=== PATIENT | female | born 1965 | race Caucasian/White ===

== ENCOUNTER → 2017-08-28 16:52 | Outpatient (CLI) | payer OTHER, SELFPAY ==
[2017-08-28 18:10] LABS: Absolute Lymphocyte Count 1.34 X10^3/ul (0.83-4.51); Absolute Neutrophil Count 4.4 X10^3/uL (2.0-7.7); Basophil# 0.03 X10^3/uL; Basophil% 0.5 % (0-1); Eosinophil# 0.19 X10^3/uL; Eosinophils% 2.9 % (0-5); Hematocrit 37.5 % (37-47); Hemoglobin 12.8 g/dl (12.0-15.0); Lymphocyte # 1.34 X10^3/ul (4.0); Lymphocyte % 20.6 % (19-41); Mean Corp Hgb Conc 34.1 g/gl (32-36); Mean Corpuscular Hgb 33.2 pg (27.0-32.0); Mean Corpuscular Volume 97.4 fL (81-99); Mean Platelet Vol. 9.8 fl (6.2-12.0); Monocyte# 0.53 X10^3/uL; Monocyte% 8.1 % (0-10); Neutrophil # 4.41 X10^3/uL (2.7-7.7); Neutrophil % 67.7 % (47-70); Platelet Count 229 K/mm3 (150-450); RBC Distribution Width CV 13.1 % (11.6-14.6); RBC Distribution Width SD 45.6 fl (35.1-43.9); Red Blood Count 3.85 M/mm3 (4.2-5.4); White Blood Count 6.5 K/mm3 (4.4-11.0)
[2017-08-28 18:21] LABS: POSITIVE COUNT NO; POSITIVE DIFFERENTIAL NO; POSITIVE MORPHOLOGY NO
[2017-08-28 18:24] LABS: Anion Gap 5 (5-15); BUN 12 mg/dL (7-18); BUN/Creat Ratio 25.8 RATIO (10-20); Calcium,Total 8.9 mg/dL (8.5-10.1); Chloride 104 mmol/L (98-107); Creatinine, Serum 0.47 mg/dL (0.55-1.02); EST Glomerular Filtration Rate 150 mL/min (>60); Est Glom Filt Rate - Afr Amer 181 mL/min (>60); Glucose 85 mg/dL (74-106); Potassium 3.4 mmol/L (3.5-5.1); Sodium Level 140 mmol/L (136-145)
== END ==
PROVIDERS: Family Provider Family Medicine; PCP Family Medicine; Visit Provider Nurse Practitioner Adult Health
DX: R53.83 Other fatigue (principal)
CPT/HCPCS: 36415; 80048; 84443; 85025

== ENCOUNTER → 2017-08-31 14:35 | Outpatient (CLI) | payer OTHER, SELFPAY ==
--- NOTE | 2017-08-31 14:15 | EMB_PTH ---
PATIENT: MYA SALINAS LOC: [facility] U#:[id number] AGE/SX: 59/F ROOM: RE08/31/[address]: Dr. Dima Cosby MD : 1965 BED: DIS: SPEC #: [id number] RECD: 08/31/17 15:09 STATUS: MARIE AMANDA #: [id number] SHAWNEE: 08/31/17 14:[address]: Dima Cosby DEPT: SURGICAL PATHOLOGY RECD BY: Ebony Cabrera Tissues: Endometrium, NOS Procedures: Surgery Specimen Level IV HEADER OPERATION: Endometrial biopsy PRE-OP DIAGNOSIS: Postmenopausal bleeding TISSUE SUBMITTED: Endometrium MICROSCOPIC DIAGNOSIS Endometrial biopsy: Strips and superficial fragments of benign endometrial tissue. Fragments of benign endocervical epithelium and mucous. SJ:daniella 09/04/17 MICROSCOPIC DESCRIPTION Slides are reviewed. GROSS DESCRIPTION Received in fixative is one container labeled with the patient's name and designated endometrial biopsy. The specimen consists of multiple fragments of hemorrhagic soft tissue that in aggregate measure 2.5 x 1 x 0.1 cm. The specimen is totally submitted in one cassette. / SJ:daniella 09/03/17 TC:5 CPT: 17714
[2017-09-05 13:11] LABS: HPV Reflexed? NOT INDICATED
== END ==
PROVIDERS: Visit Provider Obstetrics & Gynecology
DX: Z12.4 Encounter for screening for malignant neoplasm of cervix (principal)
CPT/HCPCS: 88175; 88305; G0145

== ENCOUNTER 2017-10-08 06:54 | Day surgery (SDC) | payer OTHER, SELFPAY ==
[2017-10-03 15:02] LABS: Partial Thromboplast Time 26.9 Seconds (24.1-36.2); Prothrombin Time (Protime)PT. 13.5 SECONDS (11.7-14.9)
[2017-10-03 15:35] LABS: ALB/GLOB Ratio 1.1 RATIO (0.9-2.4); AST(SGOT) 29 U/L (15-37); Alanine Aminotransfer ALT/SGPT 38 U/L (13-56); Alkaline Phosphatase 76 U/L (45-117); Anion Gap 9 (5-15); BUN 19 mg/dL (7-18); BUN/Creat Ratio 31.8 RATIO (10-20); Calcium,Total 9.2 mg/dL (8.5-10.1); Chloride 104 mmol/L (98-107); EST Glomerular Filtration Rate 112 mL/min (>60); Est Glom Filt Rate - Afr Amer 136 mL/min (>60); Globulin 3.7 g/dL (2.2-4.2); Glucose 82 mg/dL (74-106); Potassium 4.2 mmol/L (3.5-5.1); Protein, Total 7.7 g/dL (6.4-8.2); Sodium Level 140 mmol/L (136-145)
--- NOTE | 2017-10-07 11:41 | PCM.HP.BLA ---
History and Physical Date of Admission: 10/08/17 Surgical History and Physical Mariela Iniguez, a 51 year old female 3 0 0 0 3, presents for RAVH/BSO on October 08, 2017 at 9:00. 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 Also Left Lower Back Pain. Mariela characterizes it to be down to the left thigh and upwards to the back. Mariela characterizes the quality sharp. Mariela characterizes the quality throbbing. Mariela characterizes the quality stabbing. Mariela characterizes the quality painful. Severity is severe. It is relieved by epson salt baths. Additional comments are: u/s today showed small simple ovarian cyst, moderately enlarged uterus without fibroids, and 1.2 cm EM stripe; prior HER Option cryoablation. EMBx ok. MEDICATIONS HISTORY: Patient is also takin. lisinopril 10 mg tablet, daily 2. Zofran 4 mg tablet, daily 3. ProAir RespiClick 90 mcg/actuation aerosol powdr breath activated, 1 puff q q 4 hours prn ALLERGIES: Sulfonamides, Ortha evra, Headaches, Codeine and Nausea Infections - PYLO Illnesses - no serious past illnesses Accidents - no injuries of consequence Hospitalizations - Childbirth Review of Systems: GENERAL - Denies fever, or chills SKIN - Denies skin changes EYES - Denies visual changes EARS - Denies difficulty hearing NOSE - Denies nasal congestion or bleeding MOUTH - Denies sore throat or difficulty swallowing NECK - Denies pain or swelling RESPIRATORY - Denies shortness of breath or wheezing CARDIOVASCULAR - Denies palpitations or chest pain GASTROINTESTINAL - Denies nausea, vomiting, diarrhea, constipation GENITOURINARY - Denies dysuria, frequency of urination, incontinence of urine MUSCULOSKELETAL - Denies joint or muscle pain NEUROLOGICAL - Denies localized numbness or weakness PSYCHIATRIC - Denies depression or anxiety ENDOCRINE - Denies heat or cold intolerance, weight loss or gain HEMATO-IMMUNOLOGIC - Denies excesive bleeding with cuts SOCIAL HISTORY: Alcohol Use - drinks occasionally Smoking - denies use Diet - no special diet Exercise - Pilates Seat Belt Use - always Employer - unemployed Illicit Drug Use - None Sexual Activity - Spouse-Sig Other Name - ISABEL Children Name(s) - Kenyon Hood Kelton Control - Vasectomy FAMILY HISTORY: Family history of Breast cancer, DM II and Heart Disease. MENSTRUAL HISTORY: LMP Known?- DefiniteAmount/Duration - 5-7 days, Regularity - Irregular and heavy, Frequency - variable days, LMP - 11/17/08 PAST PREGNANCIES: Total Pregnancies - 3; Full Term Pregnancies - 3; Premature - 0; Abortions, Induced - 0; Abortions, Spontaneous - 0; Ectopics - 0; Multiple Births - 0; Living Children - 3 SURGICAL HISTORY: 1. 10/21/2008 [facility] Endometrial ablation ; Dima Cosby M.D. - menorrhagia, dysmenorrhea, irreg periods PHYSICAL EXAM BP- 130/100 Sitting, Right arm, regular cuff Weight- 182.54703 lbs Height- 65.50 inch BMI:29.92 CONSTITUTIONAL - NAD, well nourished, and well developed HEENT - Normocephalic, PERRLA, EOMI NECK - no nuchal rigidity LUNGS - clear to auscultation CARDIAC - Regular rate and rhythm without rubs, murmurs, or gallops ABDOMEN - Tender to palpation over lower abdomen B and suprapubic region . Upper abdomen NT . No rebound. Uterus appears slightly enlarged EXTREMITIES - No edema or calf tenderness NEUROLOGICAL - Cranial nerves II-XII grossly intact PSYCHIATRIC - A and O to time, place, person, mood and affect External Genitial Vagina - non-tender without lesions Urethra/Urethral Meatus - non-tender Bladder - non-tender Vagina - vaginal bellamy are pink and moist without loss of rugae and no evidence of atropy Cervix - without cervical motion tenderness and has normal size and features without evident lesions Uterus - slightly large. Tender to palpation . Adnexa - clear without massess or tenderness ASSESSMENT/PLAN: 1. Postmenopausal Bleeding, Pelvic pain s/p endometrial ablation EMBx OK. Discuissed proceeding with either H/S with D and C or RAVH/BS. Reviewed pelvic u/s results with patient. Pt desires proceding with RAVH/BSO. Discussed RBAs and all questions answered.
[2017-10-08] VITALS (12 sets, daily range): BP systolic 110–149; BP diastolic 50–84; PULSE 61–87; RESP 16–18; TEMP 36.3–37.4; O2SAT 95–100; BMI 29.2
--- NOTE | 2017-10-08 09:20 | HYST_PTH ---
PATIENT: MYA SALINAS LOC: [facility] U#:[id number] AGE/SX: 51/F ROOM: RE10/08/[address]: Dr. Dima Cosby MD : 1965 BED: DIS: 10/09/2017 SPEC #: [id number] RECD: 10/08/17 14:43 STATUS: MARIE RELaury #: [id number] SHAWNEE: 10/08/17 09:[address]: Dima Cosby DEPT: SURGICAL PATHOLOGY RECD BY: Dayron Dyson ENTERED: 10/08/17 14:43 SP TYPE: HYSTERECT OTHR DR: Dr. Dima Alegria MD Tissues: Uterus, NOS Procedures: Surgery Specimen Level V HEADER OPERATION: Laparoscopic robotic vaginal hysterectomy bilateral salpingo PRE-OP DIAGNOSIS: Postmenopausal bleeding, pelvic pain TISSUE SUBMITTED: Uterus, cervix, bilateral fallopian tubes and bilateral ovaries MICROSCOPIC DIAGNOSIS Uterus, hysterectomy: Cervix ? no pathologic change. Endometrium ? weakly proliferative endometrium. Myometrium ? adenomyosis and microscopic leiomyomas. Right and left fallopian tubes ? no pathologic change. Right and left ovaries with corpus luteal cysts and corpora albicantia. AM:daniella 10/09/17 COMMENT Fragments of one ovary contain changes suggestive of endometriosis. MICROSCOPIC DESCRIPTION Slides are reviewed. GROSS DESCRIPTION Received in fixative is one container labeled with the patient's name and designated uterus. The specimen consists of a uterus with attached cervix and detached fragments of fallopian tubes and portions of ovary. The fallopian tubes have an average length of 4 cm and average diameters of 0.5 cm. The three fragments of ovarian tissue in aggregate measure 4 x 3.5 x 0.8 cm. The uterus is present with attached cervix measuring 10.6 x 9 x 5.5 cm and weighs 216 gm. The ectocervix is unremarkable. The cervical os is oval in contour. The endocervical canal measures 4.2 cm in length and is grossly unremarkable. The endometrial cavity is elongated measuring 4 x 2.5 cm. The velvety, reddish-heath endometrium measures up to 0.1 cm in thickness. The myometrium measures 3.2 cm in greatest thickness and is free of mass lesions and consistent with adenomyosis. Welding Machine Operator Thermit sections are submitted in 11 cassettes as follows: 1 - anterior cervix, 2 - posterior cervix, 3 & 4 - anterior uterine wall, 5 & 6 - posterior uterine wall, 7 ? one fallopian tube, 8 ? the other fallopian tube, 9 ? one presumed ovary, 10 & 11 ? the other presumed ovary. / AM:daniella 10/08/17 TC:5 CPT: 70457
--- NOTE | 2017-10-08 09:56 | PCM.OP.BLANK ---
Operative Report Date of Procedure: 10/08/17 Surgeon: Dima Cosby MD, FACOG Staff Pharmacist [facility]: [facility] Anesthesia: Soto Arce CRNA Type of anesthesia: General Endotracheal Procedure: Robotic Assisted Vaginal Hysterectomy and Bilateral Salpingoophrectomy; Lysis of Adhesions Pre-Op: Postmenopausal Bleeding, Pelvic Pain Post-Op: Postmenopausal Bleeding, Pelvic Pain, Endometriosis Findings: 12 cm uterus with ablated endometrium cavity; right ovary with 2 cm endometrioma densely adhered to pelvic sidewall along with fallopian tube; left fallopian tube and ovary free with adhesions of the uterus to the left and right pelvic sidewalls and anterior abdominal wall. Indication: This is a 51 year old patient who has been having problems with postmenopausal bleeding and pelvic pain despite having a prior endometrial ablation. She just desires her periods to finally end. Conservative measures have not been helpful. The patient has been counseled regarding the risks, benefits and alternatives of this procedure including the possibility of bleeding, infection, and injury to surrounding structures such as bowel bladder and all questions were answered. She understands that is BSO is needed that she will need to be on HRT for an indefinite period of time. Procedure: Pt taken to the operating room where after induction of general anesthesia the patient was prepped and draped in the usual sterile fashion and placed on a non-slip Huggy-u-vac device. Trendendelenburg test was satisfactory. Bladder was drained of urine with a Cedillo catheter which was left in place. Anterior cervix grasped and cervix was dilated to about 3-4 mm. Uterus sounded to about 4 cms. 0-Vicryl suture was placed at the 3:00 and 9:00 position of the cervix. A call v-care device was then placed in the uterus to allow uterine manipulation and attention was turned to the laparoscopic portion of the procedure. Ropivocaine 0.5% was injected approximately 2-3 cm superior to the umbilicus and an 8 mm robotic camera port was introduced directly with intraperitoneal placement confirmed with insufflation. 8 mm robotic side ports were introduced under direct visualization approximately 11 cm lateral and 2 cm inferior to the umbilical port. A 5 mm left upper quadrant port was introduced and airseal insufflation with CO2 was started. The above findings were noted. Robot was docked without difficulty and attention turned to the robotic portion of the procedure. Approximately 20 cc of Ropivicaine was used. Bilateral infundibulocal ligaments/mesosalpinx were ligated with 35 mcgovern bipolar coagulation to the level of the round ligament after freeing the tubes and ovaries with sharp and blunt dissection. It was necessary to remove the right tube and ovary in pieces as well as the left tube. The posterior aspect of the cervix could not be identified due to endometriosis causing adhesions of the sigmoid to this posterior aspect of the cervix. Bladder flap was opened and divided to the level of the round ligaments using monopolar cautery. Progressive bites were then ligated on each side of the cervix with 35 mcgovern bipolar cautery to the uterine arteries. The anterior vaginal mucosa was then entered and cervix circumscribed with monopolar cautery using the vaginally placed V care device when possible. Uterus and attached remaining ovaries and tubes were then removed through the vagina. Vaginal cuff was closed first with 0-Vicryl Jeniffer stitches ?2 placed at each angle followed by closure of the mid-cuff with 0-Monocryl V-lock suture in two layers. Pelvis was copiously irrigated with saline and the right ureter conklin noted to peristalse. Tam was placed to help with postoperative hemostasis. Robot was undocked and trocars were removed with as much gas as possible. Incisions were closed with 4-0 Monocryl subcuticular sutures and incisions covered with steri-strips and opsite dressing. The patient tolerated the procedure well and was taken to the recovery room in satisfactory condition. Sponge, instruments and needle counts were all correct. There were no apparent complications of the surgery. Cefotan 2 gms IV was given prior to the procedure. Estimated Blood Loss: 100 cc Specimen to Pathology: Uterus and bilateral tubes and ovaries
--- NOTE | 2017-10-08 09:59 | PCM.DC.VHY ---
Discharge Diet: No Restrictions Discharge Activity: Return to Normal Activity, May Not Drive - while taking narcotic pain medications., May Shower May resume sexual activity in: 6-8 weeks Call your doctor if your incision/area has: Continuous Slow Oozing, Sudden Increased Bleeding, Increased Pain/ Swelling, Increased Redness, Foul Smelling Discharge Call your doctor if you observe: Fever of 101 or Higher, Inability to urinate, Inability to have a bowel movement, Using more than one pad per hour Allergies/Adverse Reactions: Allergies Sulfa (Sulfonamide Antibiotics) Adverse Reaction (Verified 10/01/17 08:32) Rash Medications to take at Discharge Pantoprazole Sodium [Protonix] 40 mg PO DAILY 03/23/16 Metoprolol Tartrate [Lopressor (beta tayler)] 50 mg PO DAILY 10/01/17 Docusate Sodium [Colace] 100 mg PO BID PRN PRN #60 cap 10/08/17 Estradiol [Estrace] 1 mg PO DAILY #100 tab 10/08/17 Oxycodone [Oxyir] 5 mg PO Q6H PRN PRN 7 Days #20 tab 10/08/17 The following prescriptions were given: Oxycodone [Oxyir] 5 mg PO Q6H PRN PRN 7 Days #20 tab PRN Reason: Severe Pain (6-11/21) Docusate Sodium [Colace] 100 mg PO BID PRN PRN #60 cap PRN Reason: Constipation Estradiol [Estrace] 1 mg PO DAILY #100 tab Primary Care Physician: Dima Alegria MD [Primary Care Provider] - Test Results: Test results from this visit will be discussed in further detail at your follow-up appointment, if applicable. Please Follow Up With: Dima Cosby MD When: 2-3 weeks
[2017-10-08] MEDS: Ropivacaine 0.5% 30 ML Vial (10:25)
[2017-10-08] MEDS: Ketorolac 30 MG/ML Syringe IV ×2 (12:45→19:23)
[2017-10-08] MEDS: oxyCODONE 5 MG Tablet PO ×2 (14:59→22:29)
[2017-10-08] MEDS: Acetaminophen 500 MG Tablet 1000 MG PO (14:59)
[2017-10-08] MEDS: Pantoprazole Sodium 40 MG Tablet PO (14:59)
[2017-10-08] MEDS: Dextrose 5%-Lactated Ringers 1,000 ML 150 ML IV ×2 (14:59→21:32)
[2017-10-08] MEDS: Enoxaparin 30 MG/0.3 ML Syringe SC (19:20)
[2017-10-08] MEDS: Metoprolol Tartrate 50 MG Tablet PO (19:22)
[2017-10-08] MEDS: 0.9% NaCl Peripheral Flush Adult/Peds IV (19:24)
[2017-10-08] MEDS: HYDROmorphone 1 MG/ML Syringe IV (23:56)
[2017-10-09] MEDS: Ketorolac 30 MG/ML Syringe IV ×2 (01:47→05:58)
[2017-10-09 01:58] VITALS: BP 105/62; PULSE 76; RESP 16; TEMP 37.2; O2SAT 95
[2017-10-09 07:05] LABS: Hematocrit 36.2 % (37-47); Hemoglobin 11.9 g/dl (12.0-15.0); Mean Corp Hgb Conc 32.9 g/gl (32-36); Mean Corpuscular Hgb 32.3 pg (27.0-32.0); Mean Corpuscular Volume 98.4 fL (81-99); Mean Platelet Vol. 9.5 fl (6.2-12.0); Platelet Count 207 K/mm3 (150-450); RBC Distribution Width CV 13.8 % (11.6-14.6); RBC Distribution Width SD 49.8 fl (35.1-43.9); Red Blood Count 3.68 M/mm3 (4.2-5.4); White Blood Count 8.2 K/mm3 (4.4-11.0)
[2017-10-09 07:07] LABS: Scan Indicated on CBC? Y/N NO
[2017-10-09 07:26] VITALS: O2SAT 94
[2017-10-09 07:37] LABS: Creatinine, Serum 0.58 mg/dL (0.55-1.02); EST Glomerular Filtration Rate 116 mL/min (>60); Est Glom Filt Rate - Afr Amer 140 mL/min (>60); Estimated Creatinine Clearance 107.42 ml/min
--- NOTE | 2017-10-09 08:29 | PCM.PN.OB ---
Subjective: Patient without complaints. Tolerating diet well. Pain well controlled. Plans to start HRT at home only if she has hot flashes as she believes she may already be menopausal. - Physical Exam Vital Signs AF, VSS Temp Pulse Resp BP Pulse Ox 98.9 F 76 16 105/62 94 10/09/17 01:58 10/09/17 01:58 10/09/17 01:58 10/09/17 01:58 10/09/17 07:26 Oxygen Flow Rate (L/min) 2 Oxygen Delivery Method Room Air Weight: 180 lb 15.992 oz Body Mass Index (BMI) 29.2 Intake and Output for Last 24 Hours 10/07/17 10/08/17 10/09/17 23:59 23:59 23:59 Intake Total 4834 / 4834 1398 / 1398 Output Total 925 / 925 750 / 750 Balance 3909 / 3909 648 / 648 Laboratory Tests Past 24 Hrs 10/09/17 10/09/17 06:25 06:25 WBC 8.2 RBC 3.68 L Hgb 11.9 L Hct 36.2 L MCV 98.4 MCH 32.3 H MCHC 32.9 RDW 13.8 RDW Differential 49.8 H Plt Count 207 MPV 9.5 Creatinine 0.58 Estim Creat Clear Calc 107.42 Est GFR (MDRD) Af Amer 140 Est GFR (MDRD) Non-Af 116 Wound is clean, dry, intact. Good urine output. Hemoglobin okay. Creatinine okay. Medical Necessity - Tobacco Use Smoking Status: Never smoker Assessment/Plan All Active Problems Pre-syncope (Acute) Chest tightness (Acute) Doing well postoperative day #1 status post robotic assisted vaginal hysterectomy and BSO. Will release to home with routine instructions.
[2017-10-09 09:10] VITALS: PULSE 84
[2017-10-09] MEDS: Pantoprazole Sodium 40 MG Tablet PO (09:10)
[2017-10-09] MEDS: Metoprolol Tartrate 50 MG Tablet PO (09:10)
[2017-10-09 09:15] VITALS: BP 120/63; PULSE 85; RESP 16; TEMP 37; O2SAT 98
== END 2017-10-09 10:16 | disposition home or self-care (01) ==
LOC: SDC 06:55 → AC 06:56 → MS2 12:21
PROVIDERS: Family Provider Family Medicine; PCP Family Medicine; Visit Provider Obstetrics & Gynecology
PROC: 0UT94ZZ Resection of Uterus, Percutaneous Endoscopic Approach (ICD-10-PCS; CPT 58552; principal; 2017-10-08 09:00)
DX: N95.0 Postmenopausal bleeding (principal); R10.2 Pelvic and perineal pain; N83.12 Corpus luteum cyst of left ovary; N83.11 Corpus luteum cyst of right ovary; N80.0 Endometriosis of uterus; J45.909 Unspecified asthma, uncomplicated; I10 Essential (primary) hypertension
CPT/HCPCS: 00840; 58552; 36415; 80053; 82565; 85027; 85610; 85730; 86850; 86900; 88307; 93005; J7120; A4216

== ENCOUNTER → 2018-02-26 12:07 | Outpatient (CLI) | payer OTHER, SELFPAY ==
[2017-10-08 14:45] VITALS: BMI 29.2
[2018-02-26 13:13] LABS: Absolute Lymphocyte Count 2.43 X10^3/ul (0.83-4.51); Absolute Neutrophil Count 6.2 X10^3/uL (2.0-7.7); Basophil# 0.03 X10^3/uL; Basophil% 0.3 % (0-1); Hematocrit 43.9 % (37-47); Hemoglobin 14.7 g/dl (12.0-15.0); Lymphocyte # 2.43 X10^3/ul (4.0); Lymphocyte % 24.6 % (19-41); Mean Corp Hgb Conc 33.5 g/gl (32-36); Mean Corpuscular Volume 95.6 fL (81-99); Mean Platelet Vol. 9.6 fl (6.2-12.0); Monocyte# 1.13 X10^3/uL; Monocyte% 11.4 % (0-10); Neutrophil # 6.16 X10^3/uL (2.7-7.7); Neutrophil % 62.3 % (47-70); POSITIVE COUNT NO; POSITIVE DIFFERENTIAL NO; POSITIVE MORPHOLOGY NO; Platelet Count 283 K/mm3 (150-450); RBC Distribution Width CV 13.5 % (11.6-14.6); RBC Distribution Width SD 46.8 fl (35.1-43.9); Red Blood Count 4.59 M/mm3 (4.2-5.4); White Blood Count 9.9 K/mm3 (4.4-11.0)
[2018-02-26 13:17] LABS: Anion Gap 10 (5-15); BUN 13 mg/dL (7-18); BUN/Creat Ratio 27.2 RATIO (10-20); Calcium,Total 9.4 mg/dL (8.5-10.1); Chloride 101 mmol/L (98-107); Creatinine, Serum 0.48 mg/dL (0.55-1.02); EST Glomerular Filtration Rate 145 mL/min (>60); Est Glom Filt Rate - Afr Amer 175 mL/min (>60); Glucose 77 mg/dL (74-106); Potassium 3.8 mmol/L (3.5-5.1); Sodium Level 139 mmol/L (136-145)
== END ==
PROVIDERS: Family Provider Family Medicine; PCP Family Medicine; Referring Provider Family Medicine; Visit Provider Family Medicine
DX: R10.13 Epigastric pain (principal); R35.0 Frequency of micturition
CPT/HCPCS: 36415; 80048; 85025; 87077; 87086; 87088; 87186

== ENCOUNTER → 2018-11-26 17:22 | Outpatient (CLI) | payer OTHER, SELFPAY | PROVIDERS: Family Provider Family Medicine; PCP Family Medicine; Referring Provider Nurse Practitioner Adult Health; Visit Provider Nurse Practitioner Adult Health | DX: R30.0 Dysuria (principal) | CPT/HCPCS: 87086; 87088; 87186 ==

== ENCOUNTER → 2019-03-07 06:54 | Outpatient (CLI) | payer OTHER, SELFPAY ==
--- NOTE | 2019-03-07 06:57 | BI_ITS ---
MAMMOGRAPHY - BILATERAL SCREENING REASON FOR EXAM: Female, 53 years old. Routine annual screening examination. PERTINENT HISTORY: Aunt with breast cancer. TECHNIQUE: Digital bilateral breast alee (3D mammographic acquisition) in the CC and MLO projections. 2-D mediolateral oblique (MLO) and craniocaudad (CC) views of both breasts were obtained. CAD: Full Field Digital Mammography with Computer Added Detection was performed. COMPARISON: Comparison is made with prior study dated December 01, 2010. FINDINGS: Breast Composition: There are scattered areas of fibroglandular density. There are no dominant masses or suspicious calcifications. Stable benign-appearing bilateral axillary lymph nodes. No other significant abnormalities are identified. There has been no significant change since the prior study. BI/SCREEN MAMM (CAD) W/ALEE BILAT IMPRESSION: Stable bilateral screening mammogram. Yearly follow-up mammogram recommended. (A) ASSESSMENT CATEGORY: BIRADS Category 2: Benign. A letter regarding these results will be sent to the patient by the facility within 30 days. Approximately 10% of breast cancers are not detected by mammography. A normal mammogram should not delay biopsy of a clinically suspicious abnormality. [id number] Electronically Signed: Woody Chavarria, at 8:30 EST , Service support ,
== END ==
PROVIDERS: PCP Family Medicine; Referring Provider Family Medicine; Visit Provider Family Medicine
DX: Z12.31 Encounter for screening mammogram for malignant neoplasm of breast (principal)
CPT/HCPCS: 77063; 77067

== ENCOUNTER → 2019-04-09 15:10 | Outpatient (CLI) | payer OTHER, SELFPAY ==
[2017-10-08 14:45] VITALS: BMI 29.2
--- NOTE | 2019-04-09 15:16 | RAD_ITS ---
STUDY: X-RAY - LUMBAR SPINE REASON FOR EXAM: Female, 53 years old. lumbar radiculopathy TECHNIQUE: 5 view(s) of the lumbar spine were obtained. COMPARISON: None FINDINGS: Normal lumbar lordosis. There is a mild upper lumbar levoscoliosis. There is a grade 1 anterolisthesis of L4 relative to L5. There is mild endplate spondylosis of the visualized lower thoracic vertebrae and L1-L3. Normal disc space heights. The soft tissue structures are unremarkable. RAD/L/S Spine Min 4 Views IMPRESSION: Mild upper lumbar levoscoliosis. Grade 1 anterolisthesis of L4 relative to L5. Mild endplate spondylosis of the visualized lower thoracic vertebrae and L1-L3. Electronically Signed: Braulio Romo MD at 23:52 EST , Service support ,
--- NOTE | 2019-04-09 15:25 | RAD_ITS ---
STUDY: X-RAY - SACRUM/COCCYX REASON FOR EXAM: Female, 53 years old. lumbar radiculopathy TECHNIQUE: 3 view(s) of the sacrum and coccyx were obtained. COMPARISON: None. FINDINGS: Normal bilateral sacroiliac joints. Normal visualized sacral ala and fused sacral bodies. Normal sacrococcygeal junction with a normal angulation. Normal coccygeal segments. The presacral soft tissue structures are unremarkable. RAD/Sacrum-Coccyx min 2 Views IMPRESSION: Normal x-rays of the sacrum and coccyx. Electronically Signed: Braulio Romo MD at 23:53 EST , Service support ,
== END ==
PROVIDERS: PCP Family Medicine; Referring Provider Family Medicine; Visit Provider Family Medicine
DX: M54.16 Radiculopathy, lumbar region (principal)
CPT/HCPCS: 72110; 72220

== ENCOUNTER → 2019-05-09 15:41 | Outpatient (CLI) | payer OTHER, SELFPAY ==
[2017-10-08 14:45] VITALS: BMI 29.2
== END ==
PROVIDERS: PCP Family Medicine; Referring Provider Family Medicine; Visit Provider Family Medicine
DX: R30.0 Dysuria (principal)
CPT/HCPCS: 87086; 87088

== ENCOUNTER → 2019-07-08 14:20 | Outpatient (CLI) | payer OTHER, SELFPAY ==
[2017-10-08 14:45] VITALS: BMI 29.2
[2019-07-08 18:51] LABS: Absolute Lymphocyte Count 1.26 X10^3/uL (0.83-4.51); Basophil# 0.04 X10^3/uL; Basophil% 0.8 % (0-1); Eosinophils% 4.1 % (0-5); Hemoglobin 12.4 g/dL (12.0-15.0); Lymphocyte # 1.26 X10^3/ul (4.0); Lymphocyte % 25.8 % (19-41); Mean Corp Hgb Conc 32.6 g/dL (32-36); Mean Corpuscular Hgb 32.5 pg (27.0-32.0); Mean Corpuscular Volume 99.5 fL (81-99); Mean Platelet Vol. 10.1 fl (6.2-12.0); Monocyte# 0.34 X10^3/uL; NRBC Flagged by Analyzer 0 % (0-5); Neutrophil # 3.03 X10^3/uL (2.7-7.7); Neutrophil % 62.1 % (47-70); Platelet Count 269 K/mm3 (150-450); RBC Distribution Width SD 47.1 fl (35.1-43.9); Red Blood Count 3.82 M/mm3 (4.2-5.4); White Blood Count 4.9 K/mm3 (4.4-11.0)
[2019-07-08 18:56] LABS: ALB/GLOB Ratio 1.1 RATIO (0.9-2.4); AST(SGOT) 26 U/L (15-37); Alanine Aminotransfer ALT/SGPT 27 U/L (13-56); Albumin, Serum 3.7 g/dL (3.2-5.0); Alkaline Phosphatase 88 U/L (45-117); Anion Gap 7 (5-15); BUN 15 mg/dL (7-18); Calcium,Total 8.8 mg/dL (8.5-10.1); Chloride 108 mmol/L (98-107); Creatinine, Serum 0.54 mg/dL (0.55-1.02); EST Glomerular Filtration Rate 127 mL/min (>60); Est Glom Filt Rate - Afr Amer 153 mL/min (>60); Globulin 3.4 g/dL (2.2-4.2); Glucose 115 mg/dL (74-106); Potassium 3.3 mmol/L (3.5-5.1); Protein, Total 7.1 g/dL (6.4-8.2); Sodium Level 141 mmol/L (136-145)
== END ==
PROVIDERS: PCP Family Medicine; Referring Provider Family Medicine; Visit Provider Family Medicine
DX: N39.0 Urinary tract infection, site not specified (principal); R19.8 Other specified symptoms and signs involving the digestive system and abdomen
CPT/HCPCS: 36415; 80053; 85025; 87086; 87088

== ENCOUNTER → 2019-07-08 14:44 | Outpatient (CLI) | payer OTHER, SELFPAY | PROVIDERS: PCP Family Medicine; Visit Provider Family Medicine | DX: R10.829 Rebound abdominal tenderness, unspecified site (principal); R19.8 Other specified symptoms and signs involving the digestive system and abdomen ==

== ENCOUNTER → 2019-07-29 17:46 | Outpatient (CLI) | payer OTHER, SELFPAY ==
[2017-10-08 14:45] VITALS: BMI 29.2
== END ==
PROVIDERS: PCP Family Medicine; Referring Provider Family Medicine; Visit Provider Family Medicine
DX: N39.0 Urinary tract infection, site not specified (principal)
CPT/HCPCS: 87086; 87088; 87186

== ENCOUNTER → 2020-03-29 07:06 | Outpatient (CLI) | payer OTHER, SELFPAY ==
--- NOTE | 2020-03-29 07:08 | BI_ITS ---
MAMMOGRAPHY - BILATERAL SCREENING REASON FOR EXAM: Female, 54 years old. Routine annual screening examination. PERTINENT HISTORY: Aunt with breast cancer. TECHNIQUE: Digital bilateral breast tanner (3D mammographic acquisition) in the CC and MLO projections. 2-D mediolateral oblique (MLO) and craniocaudad (CC) views of both breasts were obtained. CAD: Full Field Digital Mammography with Computer Added Detection was performed. COMPARISON: Comparison is made with prior examination dated 03/07/2019 and 12/01/2010. FINDINGS: Breast Composition: There are scattered areas of fibroglandular density. There are no dominant masses or suspicious calcifications. Stable benign-appearing bilateral axillary lymph nodes. No other significant abnormalities are identified. There has been no significant change since the prior study. BI/Bilat Brst Screen Tanner Add-On IMPRESSION: Stable bilateral screening mammogram. Yearly follow-up mammogram recommended. (A) ASSESSMENT CATEGORY: BIRADS Category 2: Benign. A letter regarding these results will be sent to the patient by the facility within 30 days. Approximately 10% of breast cancers are not detected by mammography. A normal mammogram should not delay biopsy of a clinically suspicious abnormality. [id number] Electronically Signed: Woody Chavarria MD at 8:50 EST , Service support ,
== END ==
PROVIDERS: PCP Family Medicine; Referring Provider Family Medicine; Visit Provider Family Medicine
DX: Z12.31 Encounter for screening mammogram for malignant neoplasm of breast (principal); Z80.3 Family history of malignant neoplasm of breast
CPT/HCPCS: 77063; 77067

== ENCOUNTER → 2020-04-16 14:16 | Outpatient (CLI) | payer OTHER, SELFPAY ==
[2017-10-08 14:45] VITALS: BMI 29.2
--- NOTE | 2020-04-16 14:18 | RAD_ITS ---
STUDY: X-RAY - LEFT KNEE REASON FOR EXAM: Female, 54 years old. KNEE PAIN TECHNIQUE: 3 view(s) of the knee. COMPARISON: None. FINDINGS: Normal visualized distal femur. Normal visualized proximal tibia and fibula. Normal proximal tibiofibular articulation. Normal medial femorotibial compartment. Normal lateral femorotibial compartment. Normal patellofemoral articulation. The soft tissue structures are unremarkable. RAD/Knee 3 Views IMPRESSION: Normal x-ray examination of the knee. Electronically Signed: Hugo Raphael DO at 22:52 EST Tel , Service support ,
== END ==
PROVIDERS: PCP Family Medicine; Referring Provider Family Medicine; Visit Provider Family Medicine
DX: M25.562 Pain in left knee (principal)
CPT/HCPCS: 73562

== ENCOUNTER → 2020-11-02 08:28 | Outpatient (CLI) | payer OTHER, SELFPAY ==
[2020-11-02 10:22] LABS: Absolute Lymphocyte Count 0.51 X10^3/uL (0.83-4.51); Absolute Neutrophil Count 1.6 X10^3/uL (2.0-7.7); Basophil# 0.02 X10^3/uL; Basophil% 0.8 % (0-1); Eosinophil# 0.03 X10^3/uL; Eosinophils% 1.2 % (0-5); Hematocrit 37.4 % (37-47); Hemoglobin 12.5 g/dL (12.0-15.0); Lymphocyte # 0.51 X10^3/ul (0.83-4.51); Lymphocyte % 20.9 % (19-41); Mean Corp Hgb Conc 33.4 g/dL (32-36); Mean Corpuscular Hgb 31.9 pg (27.0-32.0); Mean Corpuscular Volume 95.4 fL (81-99); Mean Platelet Vol. 9.6 fl (6.2-12.0); Monocyte# 0.29 X10^3/uL; Monocyte% 11.9 % (0-10); NRBC Flagged by Analyzer 0 % (0-5); Neutrophil # 1.58 X10^3/uL (2.7-7.7); Neutrophil % 64.8 % (47-70); POSITIVE DIFFERENTIAL YES; Platelet Count 169 K/mm3 (150-450); RBC Distribution Width CV 13.2 % (11.6-14.6); RBC Distribution Width SD 46.4 fl (35.1-43.9); Red Blood Count 3.92 M/mm3 (4.2-5.4); White Blood Count 2.4 K/mm3 (4.4-11.0)
[2020-11-02 10:24] LABS: Differential Indicated SCAN CRITERIA MET
[2020-11-02 10:46] LABS: AST(SGOT) 28 U/L (15-37); Alanine Aminotransfer ALT/SGPT 32 U/L (13-56); Albumin, Serum 3.5 g/dL (3.2-5.0); Alkaline Phosphatase 91 U/L (45-117); Anion Gap 10 (5-15); BUN 7 mg/dL (7-18); BUN/Creat Ratio 13.8 RATIO (10-20); Calcium,Total 8.3 mg/dL (8.5-10.1); Chloride 104 mmol/L (98-107); Cholesterol 117 mg/dL (200); Creatinine, Serum 0.51 mg/dL (0.55-1.02); EST Glomerular Filtration Rate 134 mL/min (>60); Est Glom Filt Rate - Afr Amer 162 mL/min (>60); Globulin 3.5 g/dL (2.2-4.2); Glucose 100 mg/dL (74-106); High Density Lipoprotein 39 mg/dL; Potassium 3.1 mmol/L (3.5-5.1); Sodium Level 138 mmol/L (136-145); Thyroid Stim Hormone (TSH) 0.74 uIU/mL (0.358-3.74); Triglycerides 126 mg/dL; Very Low Density Lipoprotein 25 mg/dL (5-40)
[2020-11-02 10:48] LABS: Differential Comment SCANNED
[2020-11-03 12:37] LABS: Pathologist Review Reviewed
== END ==
PROVIDERS: PCP Family Medicine; Referring Provider Family Medicine; Visit Provider Family Medicine
DX: I10 Essential (primary) hypertension (principal)
CPT/HCPCS: 36415; 80053; 80061; 81001; 84443; 85025

== ENCOUNTER → 2020-11-03 09:10 | Outpatient (CLI) | payer OTHER, SELFPAY ==
[2020-11-03 09:20] LABS: Red Blood Cells-Urine 0 SEEN /hpf (0-5)
[2020-11-03 10:13] LABS: Color, Urine Yellow (Yellow); Glucose, Dipstick Normal (Normal); Ketone-Dipstick Negative (Negative); Leukocyte Esterase-Dipstick 100 /ul (Negative); Nitrite-Dipstick Negative (Negative); Occult Blood-Urine Negative /ul (Negative); Protein-Dipstick 15 mg/dl (Negative); Urine Bilirubin Dipstick Negative (Negative); Urine Clarity Clear (Clear); Urine Urobilinogen Normal (Normal)
[2020-11-03 10:31] LABS: Bacteria RARE /hpf (None Seen); Mucous, Urine RARE /hpf (<or=2+); Squamous Epithelial Cells - UA 0-5 SEEN /hpf (5-10); White Blood Cells 0-5 SEEN /hpf (0-5)
== END ==
PROVIDERS: PCP Family Medicine; Referring Provider Family Medicine; Visit Provider Family Medicine
DX: I10 Essential (primary) hypertension (principal)
CPT/HCPCS: 81001

== ENCOUNTER → 2021-08-26 | Outpatient (CLI) | payer OTHER, SELFPAY | END | disposition home or self-care (01) | LOC: LABSPEC 10:19 | PROVIDERS: PCP Family Medicine; Visit Provider Family Medicine | DX: N39.0 Urinary tract infection, site not specified (principal) | CPT/HCPCS: 87077; 87086; 87088; 87186 ==

== ENCOUNTER → 2022-04-18 | Outpatient (CLI) | payer OTHER, SELFPAY ==
[2022-04-18 15:21] LABS: Absolute Lymphocyte Count 1.34 X10^3/uL (0.83-4.51); Absolute Neutrophil Count 3.8 X10^3/uL (2.0-7.7); Basophil# 0.05 X10^3/uL; Basophil% 0.9 % (0-1); Eosinophil# 0.14 X10^3/uL; Eosinophils% 2.4 % (0-5); Hemoglobin 13.6 g/dL (12.0-15.0); Lymphocyte # 1.34 X10^3/ul (0.83-4.51); Lymphocyte % 22.9 % (19-41); Mean Corp Hgb Conc 33.2 g/dL (32-36); Mean Corpuscular Hgb 32.4 pg (27.0-32.0); Mean Corpuscular Volume 97.6 fL (81-99); Mean Platelet Vol. 9.8 fl (6.2-12.0); Monocyte# 0.47 X10^3/uL; NRBC Flagged by Analyzer 0 % (0-5); Neutrophil # 3.82 X10^3/uL (2.7-7.7); Neutrophil % 65.5 % (47-70); Platelet Count 258 K/mm3 (150-450); RBC Distribution Width SD 46.3 fl (35.1-43.9); White Blood Count 5.8 K/mm3 (4.4-11.0)
[2022-04-18 15:43] LABS: ALB/GLOB Ratio 1.1 RATIO (0.9-2.4); AST(SGOT) 22 U/L (15-37); Alanine Aminotransfer ALT/SGPT 27 U/L (13-56); Albumin, Serum 3.8 g/dL (3.2-5.0); Alkaline Phosphatase 94 U/L (45-117); Anion Gap 8 (5-15); BUN 14 mg/dL (7-18); BUN/Creat Ratio 27.2 RATIO (10-20); Calcium,Total 9.4 mg/dL (8.5-10.1); Chloride 104 mmol/L (98-107); Cholesterol 169 mg/dL (200); Creatinine, Serum 0.52 mg/dL (0.55-1.02); EST Glomerular Filtration Rate 131 mL/min (>60); Est Glom Filt Rate - Afr Amer 158 mL/min (>60); Globulin 3.4 g/dL (2.2-4.2); Glucose 92 mg/dL (74-106); High Density Lipoprotein 41 mg/dL; Magnesium 2.2 mg/dL (1.6-2.6); Potassium 3.5 mmol/L (3.5-5.1); Protein, Total 7.2 g/dL (6.4-8.2); Sodium Level 140 mmol/L (136-145); Triglycerides 270 mg/dL; Very Low Density Lipoprotein 54 mg/dL (5-40)
[2022-04-18 15:56] LABS: Microalbumin,Random Urine 15.5 mg/L (NO RANGE EST.)
== END | disposition home or self-care (01) ==
LOC: MFPLAB 11:57
PROVIDERS: PCP Family Medicine; Referring Provider Family Medicine; Visit Provider Family Medicine
DX: I10 Essential (primary) hypertension (principal); E87.6 Hypokalemia; N39.0 Urinary tract infection, site not specified
CPT/HCPCS: 36415; 80053; 80061; 82043; 82570; 83735; 85025; 87086; 87088

== ENCOUNTER → 2022-06-23 | Outpatient (CLI) | payer BC, SELFPAY ==
[2022-06-23 15:27] LABS: Absolute Lymphocyte Count 1.43 X10^3/uL (0.83-4.51); Absolute Neutrophil Count 3.5 X10^3/uL (2.0-7.7); Basophil# 0.03 X10^3/uL; Basophil% 0.5 % (0-1); Eosinophil# 0.15 X10^3/uL; Eosinophils% 2.7 % (0-5); Hematocrit 40.3 % (37-47); Hemoglobin 13.2 g/dL (12.0-15.0); Lymphocyte # 1.43 X10^3/ul (0.83-4.51); Lymphocyte % 25.6 % (19-41); Mean Corp Hgb Conc 32.8 g/dL (32-36); Mean Corpuscular Hgb 31.9 pg (27.0-32.0); Mean Corpuscular Volume 97.3 fL (81-99); Monocyte# 0.47 X10^3/uL; Monocyte% 8.4 % (0-10); NRBC Flagged by Analyzer 0 % (0-5); Neutrophil # 3.48 X10^3/uL (2.7-7.7); Neutrophil % 62.4 % (47-70); Platelet Count 246 K/mm3 (150-450); RBC Distribution Width CV 13.2 % (11.6-14.6); RBC Distribution Width SD 47.2 fl (35.1-43.9); Red Blood Count 4.14 M/mm3 (4.2-5.4); White Blood Count 5.6 K/mm3 (4.4-11.0)
[2022-06-23 15:47] LABS: Vitamin B12 > 2000 pg/mL (211-911); Vitamin D,25 Hydroxy 109.7 ng/mL
[2022-06-23 15:53] LABS: ALB/GLOB Ratio 1.1 RATIO (0.9-2.4); AST(SGOT) 25 U/L (15-37); Alanine Aminotransfer ALT/SGPT 35 U/L (13-56); Albumin, Serum 3.9 g/dL (3.2-5.0); Alkaline Phosphatase 96 U/L (45-117); Anion Gap 7 (5-15); BUN 12 mg/dL (7-18); BUN/Creat Ratio 20.8 RATIO (10-20); Calcium,Total 8.9 mg/dL (8.5-10.1); Chloride 106 mmol/L (98-107); Creatinine, Serum 0.58 mg/dL (0.55-1.02); EST Glomerular Filtration Rate 115 mL/min (>60); Est Glom Filt Rate - Afr Amer 139 mL/min (>60); Globulin 3.5 g/dL (2.2-4.2); Glucose 119 mg/dL (74-106); Potassium 3.3 mmol/L (3.5-5.1); Protein, Total 7.4 g/dL (6.4-8.2); Sodium Level 139 mmol/L (136-145); T4 Free Direct 1.12 ng/dL (0.76-1.46); Thyroid Stim Hormone (TSH) 1.14 uIU/mL (0.358-3.74)
[2022-06-26 11:21] LABS: Hemoglobin A1c 5.1 % (3.8-5.6)
== END | disposition home or self-care (01) ==
LOC: MFPLAB 12:10
PROVIDERS: PCP Family Medicine; Visit Provider Family Medicine
DX: R73.09 Other abnormal glucose (principal); R53.83 Other fatigue
CPT/HCPCS: 36415; 80053; 82306; 82607; 83036; 84439; 84443; 85025

== ENCOUNTER → 2023-04-05 | Outpatient (CLI) | payer OTHER, SELFPAY ==
[2023-04-05 17:49] LABS: Absolute Lymphocyte Count 1.52 X10^3/uL (0.83-4.51); Absolute Neutrophil Count 5.5 X10^3/uL (2.0-7.7); Basophil# 0.08 X10^3/uL; Eosinophil# 0.19 X10^3/uL; Eosinophils% 2.4 % (0-5); Hematocrit 41.6 % (37-47); Hemoglobin 13.9 g/dL (12.0-15.0); Lymphocyte # 1.52 X10^3/ul (0.83-4.51); Lymphocyte % 19.1 % (19-41); Mean Corp Hgb Conc 33.4 g/dL (32-36); Mean Corpuscular Hgb 31.9 pg (27.0-32.0); Mean Corpuscular Volume 95.4 fL (81-99); Monocyte# 0.63 X10^3/uL; Monocyte% 7.9 % (0-10); NRBC Flagged by Analyzer 0 % (0-5); Neutrophil # 5.52 X10^3/uL (2.7-7.7); Neutrophil % 69.2 % (47-70); Platelet Count 302 K/mm3 (150-450); RBC Distribution Width CV 13.2 % (11.6-14.6); RBC Distribution Width SD 46.4 fl (35.1-43.9); Red Blood Count 4.36 M/mm3 (4.2-5.4)
--- OUTSIDE RECORDS SUMMARY | 2023-04-05 18:02 | XMS RPT_ITS | CCD ---
Author Name Unknown Address [address] [place] [address] Organization [facility] Results Test Name Value Interpretation Reference Range Facil ity Summary Purpose Family History No Family History Records Found Advance Directives No Advanced Directives Records Found Additional Source Comments INFORMATION SOURCE (unrecogn ized section and content) FOR RECORDS PERTAINING TO PATIENTS WHO ARE OR HAVE BEEN ENROLLED IN A CHEMICAL DEPENDENCY/SUBSTANCEABUSE PROGRAM, SOME INFORMATION MAY BE OMITTED. This clinical summary was aggregated from multiple sources. Caution should be exercised in using it in the provision of clinical care. This summary normalizes information from multiple sources, and as a consequence, information in this document may materially change the coding, format and clinical context of patient data. In addition, data may be omitted in some cases. CLINICAL DECISIONS SHOULD BE BASED ON THE PRIMARY CLINICAL RECORDS. alike. provides no warranty or guarantee of the accuracy or completeness of information in this document.
[2023-04-05 18:38] LABS: ALB/GLOB Ratio 1.1 RATIO (0.9-2.4); AST(SGOT) 21 U/L (15-37); Alanine Aminotransfer ALT/SGPT 25 U/L (13-56); Albumin, Serum 3.9 g/dL (3.2-5.0); Alkaline Phosphatase 99 U/L (45-117); Anion Gap 5 (5-15); BUN 18 mg/dL (7-18); BUN/Creat Ratio 31.5 RATIO (10-20); Chloride 107 mmol/L (98-107); Cholesterol 175 mg/dL (200); Creatinine, Serum 0.57 mg/dL (0.55-1.02); EST Glomerular Filtration Rate 116 mL/min (>60); Est Glom Filt Rate - Afr Amer 140 mL/min (>60); Globulin 3.6 g/dL (2.2-4.2); Glucose 106 mg/dL (74-106); High Density Lipoprotein 50 mg/dL; Magnesium 2.5 mg/dL (1.6-2.6); Potassium 3.7 mmol/L (3.5-5.1); Protein, Total 7.5 g/dL (6.4-8.2); Sodium Level 138 mmol/L (136-145); Thyroid Stim Hormone (TSH) 0.93 uIU/mL (0.358-3.74); Triglycerides 186 mg/dL; Very Low Density Lipoprotein 37 mg/dL (5-40)
== END | disposition home or self-care (01) ==
LOC: MFPLAB 14:21
PROVIDERS: PCP Family Medicine; Visit Provider Family Medicine
DX: I10 Essential (primary) hypertension (principal); J45.30 Mild persistent asthma, uncomplicated
CPT/HCPCS: 36415; 80053; 80061; 83735; 84443; 85025

== ENCOUNTER → 2023-05-04 | Outpatient (CLI) | payer OTHER, SELFPAY ==
--- NOTE | 2023-05-04 07:04 | BI_ITS ---
MAMMOGRAPHY - BILATERAL SCREENING REASON FOR EXAM: Female, 57 years old. Routine annual screening examination. PERTINENT HISTORY: Aunts with breast cancer. TECHNIQUE: Digital bilateral breast alee (3D mammographic acquisition) in the CC and MLO projections. 2-D mediolateral oblique (MLO) and craniocaudad (CC) views of both breasts were obtained. CAD: Full Field Digital Mammography with Computer Added Detection was performed. COMPARISON: Comparison is made with prior study of March 29, 2020 and March 07, 2019. FINDINGS: Breast Composition: There are scattered areas of fibroglandular density. There are no dominant masses or suspicious calcifications. Stable small benign-appearing bilateral axillary lymph nodes. No other significant abnormalities are identified. There has been no significant change since the prior study. BI/SCRN MAMM (CAD)W/ALEE BILAT IMPRESSION: Stable bilateral screening mammogram. Yearly follow-up mammogram recommended. (A) ASSESSMENT CATEGORY: BIRADS Category 2: Benign. A letter regarding these results will be sent to the patient by the facility within 30 days. Approximately 10% of breast cancers are not detected by mammography. A normal mammogram should not delay biopsy of a clinically suspicious abnormality. [id number] Electronically Signed: Woody Chavarria MD at 8:49 EDT ,
== END | disposition home or self-care (01) ==
PROVIDERS: PCP Family Medicine; Referring Provider Family Medicine; Visit Provider Family Medicine
DX: Z12.31 Encounter for screening mammogram for malignant neoplasm of breast (principal); Z80.3 Family history of malignant neoplasm of breast
CPT/HCPCS: 77063; 77067

== ENCOUNTER → 2023-10-02 | Outpatient (CLI) | payer OTHER, SELFPAY ==
[2023-10-02 16:03] LABS: AST(SGOT) 20 U/L (15-37); Alanine Aminotransfer ALT/SGPT 23 U/L (13-56); Albumin, Serum 3.8 g/dL (3.2-5.0); Alkaline Phosphatase 102 U/L (45-117); Anion Gap 3 (5-15); BUN 12 mg/dL (7-18); BUN/Creat Ratio 20.4 RATIO (10-20); Calcium,Total 9.4 mg/dL (8.5-10.1); Chloride 106 mmol/L (98-107); Cholesterol 188 mg/dL (200); Creatinine, Serum 0.59 mg/dL (0.55-1.02); EST Glomerular Filtration Rate 112 mL/min (>60); Est Glom Filt Rate - Afr Amer 136 mL/min (>60); Globulin 3.7 g/dL (2.2-4.2); Glucose 94 mg/dL (74-106); High Density Lipoprotein 47 mg/dL; Magnesium 2.5 mg/dL (1.6-2.6); Potassium 3.8 mmol/L (3.5-5.1); Protein, Total 7.5 g/dL (6.4-8.2); Sodium Level 137 mmol/L (136-145); Triglycerides 197 mg/dL; Very Low Density Lipoprotein 39 mg/dL (5-40)
[2023-10-02 16:19] LABS: Absolute Lymphocyte Count 1.51 X10^3/uL (0.83-4.51); Absolute Neutrophil Count 5.1 X10^3/uL (2.0-7.7); Basophil# 0.06 X10^3/uL; Basophil% 0.8 % (0-1); Eosinophil# 0.18 X10^3/uL; Eosinophils% 2.4 % (0-5); Hematocrit 40.9 % (37-47); Hemoglobin 13.8 g/dL (12.0-15.0); Lymphocyte # 1.51 X10^3/ul (0.83-4.51); Lymphocyte % 20.3 % (19-41); Mean Corp Hgb Conc 33.7 g/dL (32-36); Mean Corpuscular Hgb 32.3 pg (27.0-32.0); Mean Corpuscular Volume 95.8 fL (81-99); Monocyte# 0.53 X10^3/uL; Monocyte% 7.1 % (0-10); NRBC Flagged by Analyzer 0 % (0-5); Neutrophil # 5.11 X10^3/uL (2.7-7.7); Neutrophil % 68.9 % (47-70); Platelet Count 280 K/mm3 (150-450); RBC Distribution Width CV 13.1 % (11.6-14.6); RBC Distribution Width SD 45.6 fl (35.1-43.9); Red Blood Count 4.27 M/mm3 (4.2-5.4); White Blood Count 7.4 K/mm3 (4.4-11.0)
== END | disposition home or self-care (01) ==
LOC: MFPLAB 13:43
PROVIDERS: PCP Family Medicine; Visit Provider Family Medicine
DX: I10 Essential (primary) hypertension (principal); E87.6 Hypokalemia
CPT/HCPCS: 36415; 80053; 80061; 83735; 84443; 85025

== ENCOUNTER → 2025-01-02 | Outpatient (CLI) | payer OTHER, SELFPAY ==
--- NOTE | 2025-01-02 08:05 | BI_ITS ---
EXAM: SCRN MAMM (CAD)W/ALEE BILAT DATE: 01/02/2025 CLINICAL HISTORY: F, Age 59 y/o , SCREENING TECHNIQUE: Procedure Code: [id number] Modality: MG Procedure: SCRN MAMM (CAD)W/ALEE BILAT COMPARISON: Prior exam(s) were compared FINDINGS: TISSUE DENSITY: The breasts are heterogeneously dense, which may obscure small masses. Bilateral Breast Mammographic Findings: No significant masses, calcifications or other abnormalities are identified. BI/SCRN MAMM (CAD)W/ALEE BILAT IMPRESSION: No mammographic evidence of malignancy in either breast. OVERALL FINAL ASSESSMENT BI-RADS 1: NEGATIVE. RECOMMENDATION: Routine annual follow-up in 1 Year Additional Recommendation none A letter with findings and recommendations will be mailed to the patient. Reading Location: [id number]
== END | disposition home or self-care (01) ==
LOC: OPBI 08:03
PROVIDERS: PCP Family Medicine; Referring Provider Family Medicine; Visit Provider Family Medicine
DX: Z12.31 Encounter for screening mammogram for malignant neoplasm of breast (principal)
CPT/HCPCS: 77063; 77067